=== PATIENT | female | born 1965 | race African-American/Black ===

== ENCOUNTER 2017-04-19 08:44 | Day surgery (SDC) | payer OTHER ==
--- NOTE | 2017-04-15 10:42 | PREOPHP ---
DATE OF ADMISSION: 12/25/2016 REASON FOR ADMISSION: Patient is coming for a procedure on Saturday the . HISTORY OF PRESENT ILLNESS: This is a 52-year-old female, 3, para 3 patient with a history of an ethanol usage, marijuana user, smoker, alcoholic with bleeding heavily with periods up to 20 d ays with a hemoglobin of 8.4. She had a biopsy in a different clinic that revealed that she had no malignancy and she has been advised for a hysteroscopic hydrothermal ablation. The patient has a hi story of a large fibroid. She is in perimenopause, she is anemic and she also has hypertension. REVIEW OF SYSTEMS: Negative for cardiovascular disease except for hypertension. No heart attacks. No history of angina or any other problems. She smokes. She drinks and she has history of seizures and she has history of drugs. MEDICATIONS: She is on lisinopril. FAMILY HISTORY: Hypertension. PHYSICAL EXAMINATION: GENERAL APPEARANCE: The patient's general appearance is good. VITAL SIGNS: Her blood pressure is controlled, is 140/60. She weighs 189 and she is 5 feet 4 inche s. HEAD AND NECK: Normal. CHEST: Clear. HEART: Normal sinus rhythm. LUNGS: Clear. ABDOMEN: Soft, nontender, no masses. GENITALIA: With a large cervical fibroid. Uterus retroverted, flexed with pain with difficult evalua tion due to pain. The rest of the exam was normal. DIAGNOSES: 1. Menometrorrhagia. 2. Large fibroid. 3. Chronic smoker. 4. Hypertension. 5. Ethanol usage. PLAN: She is undergoing a hysteroscopic hydrothermal ablation. The patient has been advised of the possible risks and possible complications of the procedure with her alternatives and options. Writ ten information was provided. She had no more questions and agreed to go ahead with the procedure w ith full understanding and no more questions. Dictated By: MELINA HUSAIN/NTS Conf#: [id number] DID#: [id number]
[~2017-04-19] VITALS: Ht 162.6 cm; Wt 73.7 kg
[2017-04-19] VITALS (9 sets, daily range): BP systolic 110–142; BP diastolic 56–87; PULSE 50–72; RESP 16–18; Ht 162.6 cm; Wt 73.7 kg
[~2017-04-19 08:44] MED LIST: ATA25 PO; CEFAZOLIN 1 GM INJ ONE; DEXAMETHASONE 4 MG/ML 1 ML INJ ONE; HYDR25TA6; LISI20TA PO; OLAN15TA3 PO; ONDANSETRON 4 MG INJ ONE; ROCURONIUM 50 MG INJ ONE
--- NOTE | 2017-04-19 09:56 | HPN ---
Date/Time of Note Date/Time of Note DATE: 04/19/17 TIME: 09:56 Interval H&P Admission Note Pt. seen H&P reviewed: No system changes MELINA DELGADILLO MD Apr 19, 2017 09:56
[2017-04-19 10:02] LABS: ADD SCAN DIFF NO
[2017-04-19] MEDS ORDERED: FOLI-49 PO (10:03)
[2017-04-19 10:07] LABS: ABNORMAL IP MESSAGE 1; BASOPHILS % 0.6 % (0.0-2.0); EOSINOPHILS # 0.1 10^3/ul (0.0-0.5); EOSINOPHILS % 1.5 % (0.0-7.0); HEMATOCRIT 31.1 % (37.0-47.0); HEMOGLOBIN 9.3 g/dl (12.0-16.0); LYMPHOCYTES # 1.9 10^3/ul (0.8-2.9); LYMPHOCYTES % 35.3 % (15.0-51.0); MEAN CORPUSCULAR HGB CONC 29.9 g/dl (32.0-37.0); MEAN CORPUSCULAR VOLUME 80.2 fl (82.0-101.0); MEAN PLATELET VOLUME 12.2 fl (7.4-10.4); MONOCYTE # 0.5 10^3/ul (0.3-0.9); MONOCYTES % 9.9 % (0.0-11.0); NEUTROPHIL # 2.8 10^3/ul (1.6-7.5); NEUTROPHILS % 52.5 % (39.0-77.0); PLATELET COUNT 180 10^3/UL (140-415); RED BLOOD COUNT 3.88 10^6/ul (4.20-5.40); WHITE BLOOD COUNT 5.3 10^3/ul (4.8-10.8)
[2017-04-19 10:24] LABS: INR 0.91; PROTIME 12.2 Sec (12.2-14.2)
[2017-04-19 10:25] LABS: PARTIAL THROMBOPLASTIN TIME 26.4 Sec (25.0-35.0)
[2017-04-19 10:31] LABS: ADD UMIC YES; UR ASCORBIC ACID NEGATIVE (NEGATIVE); UR BILIRUBIN (Dip) NEGATIVE (NEGATIVE); UR BLOOD (Dip) NEGATIVE (NEGATIVE); UR CLARITY SLIGHTLY CLOUDY (CLEAR); UR COLOR YELLOW (YELLOW); UR GLUCOSE (Dip) NEGATIVE (NEGATIVE); UR KETONES (Dip) NEGATIVE (NEGATIVE); UR LEUKOCYTE ESTERASE (Dip) 2+ Leu/ul (NEGATIVE); UR NITRITE (Dip) NEGATIVE (NEGATIVE); UR RBC 0 /HPF (0-5); UR SPECIFIC GRAVITY (Dip) 1.016 (1.003-1.030); UR TOTAL PROTEIN (Dip) NEGATIVE (NEGATIVE); UR UROBILINOGEN (Dip) NEGATIVE (NEGATIVE)
[2017-04-19] MEDS ORDERED: PROPOFOL 100 ML ONE (11:52)
[2017-04-19 12:18] LABS: UR SQUAMOUS EPITHELIAL CELL FEW /HPF (FEW)
[2017-04-19] MEDS ORDERED: KETOROLAC 30 MG INJ ONE (12:18)
--- NOTE | 2017-04-19 12:48 | PD.PPDC ---
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
--- NOTE | 2017-04-19 12:50 | OPR ---
Date/Time of Note Date/Time of Note DATE: 04/19/17 TIME: 12:49 Operative Report Free Text/Dictation vaginal myomectomy D&C Procedure Date: Apr 19, 2017 Preoperative Diagnosis INTRACTABLE MENOMETRORRHAGIA LARGE FIBROID UTERUS HTN CHRONIC SMOKER ETHANOL USAGE Postoperative Diagnosis SAME PREOP LARGE UTERINE FIBROID PROLAPSE Surgeon: MELINA DELGADILLO MD Anesthesia: general Anesthesiologist: TIMOTEO TORRES Estimated Blood Loss: 0 - 10 ml's Complications: None Disposition: PACU MELINA DELGADILLO MD Apr 19, 2017 12:50
[2017-04-19] MEDS ORDERED: FENTAnyl 50 MCG/ML VIAL IV PRN ×3 (13:00)
[2017-04-19] MEDS ORDERED: OXYCODONE/ACETAMINOPHEN (5/325) TAB PO PRN ×2 (13:00)
[2017-04-19] MEDS ORDERED: KETOROLAC 30 MG INJ IV PRN (13:00)
[2017-04-19] MEDS ORDERED: LABETALOL HCL 20MG INJ IV PRN (13:00)
[2017-04-19] MEDS ORDERED: METOCLOPRAMIDE 10 MG INJ IV PRN (13:00)
[2017-04-19] MEDS ORDERED: MEPERIDINE 25 MG INJ IV PRN (13:00)
[2017-04-19] MEDS ORDERED: hydrALAzine 20 MG INJ IV PRN (13:00)
[2017-04-19] MEDS ORDERED: ONDANSETRON 4 MG INJ IV PRN (13:00)
[2017-04-19] MEDS ORDERED: EPHEDrine SULFATE 50 MG/5 ML SYG IV PRN (13:00)
[2017-04-19] MEDS ORDERED: DIPHENHYDRAMINE 50 MG INJ IV PRN (13:00)
[2017-04-19] MEDS ORDERED: HYDROmorphONE (0.2 MG/ML) 10ML SYG IV PRN ×3 (13:00)
--- NOTE | 2017-04-19 13:36 | OPR ---
DATE OF OPERATION: 04/19/2017 PREOPERATIVE DIAGNOSES: 1. Intractable menometrorrhagia. 2. Large fibroid uterus. 3. Hypertension. 4. Chronic smoker. 5. Ethanol usage. POSTOPERATIVE DIAGNOSES: 1. Intractable menometrorrhagia. 2. Large uterine fibroid prolapse. 3. Hypertension. 4. Chronic smoker. 5. Ethanol usage. PROCEDURE PERFORMED: Vaginal myomectomy and a D and C. SURGEON: Melina Giordano MD ANESTHESIOLOGIST: Dr. Lang. ANESTHESIA: General anesthesia. DESCRIPTION OF PROCEDURE: The patient was given general anesthesia, placed in the lithotomy positi on. The perineal and vaginal area were prepped and draped. Examination under anesthesia revealed t hat there was a large fibroid that was prolapsing through the cervix from the uterine cavity. To be able to perform the D and C, we had to do a vaginal myomectomy, where we used a knife and then myom ectomy was done of a 5 cm fibroid. The cervix was dilated and the scraping of the cavity was done. This tissue was sent for histopathology. The cervical area where the fibroid was located and prola psing was bleeding, so we did a pursestring suture with interlocking 0 Vicryl with a needle a nd going all around the cervical area to close up the bleeding. The bleeding subsided and a piece o f Surgicel was placed on the cervix for further control. There was no active bleeding. The patient tolerated the procedure well and left the OR awake and stable. Sponge counts and instrument counts were correct. Intravenous antibiotics were given for prophylaxis. Dictated By: MELINA HUSAIN/JOSE MIGUEL Conf#: [id number] DID#: [id number]
== END 2017-04-19 14:27 | disposition home or self-care (01) ==
LOC: SDS 08:44
PROVIDERS: ATTEND Obstetrics & Gynecology
DX: N92.0 Excessive and frequent menstruation with regular cycle (principal); D64.9 Anemia, unspecified; D25.9 Leiomyoma of uterus, unspecified; F17.200 Nicotine dependence, unspecified, uncomplicated; I10 Essential (primary) hypertension
CPT/HCPCS: 58120; 81001; 85025; 85610; 85730; 88305; 93005; J0690; J1100; J1885; J2405; J3010; Z7512; Z7610